=== PATIENT | male | born 1960 | race African-American/Black ===

== ENCOUNTER 2016-03-15 16:57 | Emergency (ER) | payer SELFPAY ==
[~2016-03-15] VITALS: Ht 180.3 cm; Wt 97.5 kg
[2016-03-15 19:57] VITALS: BP 163/101
[2016-03-15] MEDS ORDERED: LIDOCAINE 1% HCL (LOCAL ANESTH.) INJ 20ML MDV ONE (20:23)
[2016-03-15] MEDS ORDERED: TETANUS-DIPTH-ACEL PERTUSSIS 0.5ML SYRG IM ONE (20:45)
== END 2016-03-15 20:53 | disposition home or self-care (01) ==
LOC: ER 17:07
DX: S61.011A Laceration without foreign body of right thumb without damage to nail, initial encounter (principal); Z23 Encounter for immunization; W22.8XXA Striking against or struck by other objects, initial encounter; Y93.89 Activity, other specified; Y99.8 Other external cause status; Y92.89 Other specified places as the place of occurrence of the external cause
CPT/HCPCS: 12001; 90471; 90715; 99283; J2001